=== PATIENT | female | born 1945 | race Caucasian/White ===

== ENCOUNTER 2017-07-20 12:10 | Day surgery (SDC) | payer MEDICARE ==
[2017-07-19 15:51] VITALS: BMI 25.7
[2017-07-20] MEDS ORDERED: Oxymetazoline HCl 0.05% ( 15 ML ) ONE ×3 (14:08→18:45)
[2017-07-20 14:23] LABS: Hematocrit 48.8 % (36.0-47.0)
[2017-07-20 14:42] LABS: Anion Gap 16 mmol/L (10-20); BUN (Urea Nitrogen) 12 mg/dL (9.8-20.1); Calc. Creatinine Clearance 91 mL/min (70-130); Calcium 9.5 mg/dL (7.8-10.44); Carbon Dioxide 25 mmol/L (23-31); Chloride 103 mmol/L (98-107); Estimated GFR-MDRD Greater than 90
[2017-07-20] MEDS ORDERED: Fentanyl 250 MCG/5 ML VIAL ONE (15:42)
[2017-07-20] MEDS ORDERED: Propofol 200 MG/20 ML VIAL ONE (15:58)
[2017-07-20] MEDS ORDERED: Ondansetron HCl/PF 4 MG/2 ML Vial ONE (15:58)
[2017-07-20] MEDS ORDERED: Esmolol 100 MG/10 ML VIAL ONE (15:58)
[2017-07-20] MEDS ORDERED: Lidocaine 2% MPF 10 ML AMP (For Epidural Use) ONE (15:58)
[2017-07-20] MEDS ORDERED: Dexamethasone 20 MG/5 ML VIAL ONE (15:58)
[2017-07-20] MEDS ORDERED: Fentanyl 100 MCG/2 ML VIAL ONE (16:58)
--- NOTE | 2017-07-20 17:29 | OP ---
PREOPERATIVE DIAGNOSES: Chronic acute sinusitis, recurrent sinusitis, hypertrophic inferior turbina yoon. POSTOPERATIVE DIAGNOSES: Chronic acute sinusitis, recurrent sinusitis, hypertrophic inferior turbin ates. PROCEDURE PERFORMED: 1. Bilateral nasal endoscopy with maxillary antrostomy with removal of tissue. 2. Bilateral nasal endoscopy with total ethmoidectomy. 3. Bilateral nasal endoscopy with frontal sinusotomy. 4. Bilateral nasal endoscopy with sphenoidotomy. 5. Bilateral nasal endoscopy with submucosal resection of inferior turbinates. PROCEDURE IN DETAIL: After consent was obtained, the patient was identified, brought to the operati ng room, and placed on the operating room table in the supine position. Consent was obtained, notif jaci the patient of the possibility of additional infections, bleeding, brain injury, and eye/orbita l injury. The patient was placed on the operating room table, and general endotracheal anesthesia and intravenous access was obtained. The patient was then positioned, prepped and draped for endosc opic sinus surgery. Nasal preparation included trimming nasal vestibular hairs and spraying in topi gato Afrin. We then placed Afrin topical solution on nasal pledgets and strategically located them i ntranasally. The perinasal mucosa was injected with 1% lidocaine with 1:100,000 epinephrine in the submucoperichondrial plane of the septum, lateral nasal wall, and anterior to the uncinate. The pat ient was then prepped and draped in a sterile fashion and positioned for endoscopic sinus surgery. (Endoscopic Sinus Surgery) With the 0-degree endoscope, the patient underwent systematic nasal endoscopy. There were no suspic ious internasal masses or lesions identified. We then focused our attention to the osteomeatal comp ita region under the middle turbinate. (Kasi Bullosa) The kasi bullosa was identified and entered with a sickle blade. The lateral aspect of the kasi bullosa was meticulously resected while leaving the medial most aspect to form the new middle turbi zay. Attention was made not to violate the mucosa. The straight biting punches and micro-debrider were used to remove shrouds of mucosa and bony debris. (Maxillary Antrostomy) The uncinate was then identified and the extent of the uncinate was appreciated by out-fracturing th e uncinate with the ball-tip probe. We then used the sickle blade to disarticulate the uncinate fro m the lateral nasal wall. This was then removed with straight biting and upbiting punches with the remaining shrouds of mucosa and bony septum removed with the micro-debrider. The natural os of the maxillary sinus was then identified and enlarged with the maxillary punches and back biting forceps. (Total Ethmoidectomy) The anterior face of the ethmoid bulla was entered and with the micro-debrider, dissection continued posteriorly to the ground lamella. The limits of dissection included the insertion of the middle t urbinate, medial orbital wall, and base of skull. We similarly identified the frontal recess and re moved shrouds of bone and debris in that region to obtain patency into the agger nasi region and fro ntal recess. We then entered the ground lamella and its anteroinferior aspect and proceeded posteri leighann, opening the posterior ethmoid air-cell system. Again, the limits of dissection included the b ase of skull and medial orbital wall. (Sphenoidotomy) The anterior face of the sphenoid was identified and entered in its extreme anteroinferior aspect. A sphenoid punch was then used to enlarge the sphenoidotomy and no injury to the optic nerve or inte rnal carotid artery occurred. (Outfracture of the Inferior Turbinates) The inferior turbinates were visualized under endoscopic visualization and outfractured with the alyce vator. The inferolateral edge of the inferior turbinate was then cauterized along its length with t he suction cautery without difficulty. (Outfracture \T\ Cautery of the Inferior Turbinates) The inferior turbinates were visualized with a 0-degree endoscope and outfractured with a Fifield elev ator. The inferior medial aspect was cauterized with the electrocautery. Hemostasis was obtained . After adequate airway was established, we turned our attention to the contralateral side and used a similar procedure. Again, a Fifield elevator was used to outfracture inferior turbinates under endo scopic visualization. With a suction cautery, the free inferior medial aspect was cauterized under direct visualization along the length of the inferior turbinate. (Septoplasty) After local anesthesia was infiltrated into the submucoperichondrial plane, a standard Ralf incis ion was made with a #15 blade down to the level of the septal cartilage. The caudal elevator was us ed to elevate the mucoperichondrium from the underlying cartilage. We then proceeded beyond the bon y cartilaginous junction and elevated the bony periosteum as well. Great attention was paid to the spur to prevent rent formation in the septal flap. A transcartilaginous incision was then made, whil e preserving an adequate dorsal and caudal cartilaginous strut for tip support. The deformed cartil age was removed and disarticulated from the bony cartilaginous junction and maxillary crest. This w as placed in saline and would later be crushed and returned to the mucoperichondrial envelope. We t hen elevated the contralateral periosteum from the bony cartilaginous region and removed the deforme d portions of the bone and bony spurs. The cartilage was then crushed and placed back into the muco perichondrial envelope and the mucosa was re-approximated with a quilting stitch composed of rapidly absorbent gut suture. The [place] incision was also closed with interrupted gut suture. At the co mpletion of the case, Ibrahim splints were placed and suture secured to the caudal septum. At the completion of the case, Rice keel splints were placed in the ethmoid cavities after the ethmoidectomy. There were no complications. The patient tolerated the procedure well and was discharged to the recovery room in stable condition prior to return to the preoperativ e Day Stay with ultimate discharge home. Prescriptions for pain medication and antibiotics were pro vided. The patient received intramuscular Depo-Medrol during the case.
[2017-07-20] MEDS ORDERED: Morphine 4 MG/ML Carpuject ONE (17:32)
[2017-07-20] MEDS ORDERED: Promethazine HCl 25 MG/ML VIAL ONE (18:32)
--- NOTE | 2017-07-21 16:06 | EKG ---
Test Reason : PREOP Blood Pressure : / mmHG Vent. Rate : 075 BPM Atrial Rate : 075 BPM P-R Int : 138 ms QRS Dur : 102 ms QT Int : 422 ms P-R-T Axes : 054 -20 066 degrees QTc Int : 471 ms Normal sinus rhythm Normal ECG No previous ECGs available Confirmed by DR. Jose Francisco HEARD ([id number]) on 07/21/2017 4:05:58 PM Referred By: ELY Confirmed By:DR. Jose Francisco HEARD
== END 2017-07-20 20:30 | disposition home or self-care (01) ==
LOC: SDC 12:10
PROVIDERS: ATTEND Specialist
PROC: 099R8ZZ Drainage of Left Maxillary Sinus, Via Natural or Artificial Opening Endoscopic (ICD-10-PCS; principal; 2017-07-20)
PROC: 099Q8ZZ Drainage of Right Maxillary Sinus, Via Natural or Artificial Opening Endoscopic (ICD-10-PCS; 2017-07-20)
PROC: 09TV8ZZ Resection of Left Ethmoid Sinus, Via Natural or Artificial Opening Endoscopic (ICD-10-PCS; 2017-07-20)
PROC: 09TU8ZZ Resection of Right Ethmoid Sinus, Via Natural or Artificial Opening Endoscopic (ICD-10-PCS; 2017-07-20)
PROC: 099T8ZZ Drainage of Left Frontal Sinus, Via Natural or Artificial Opening Endoscopic (ICD-10-PCS; 2017-07-20)
PROC: 099S8ZZ Drainage of Right Frontal Sinus, Via Natural or Artificial Opening Endoscopic (ICD-10-PCS; 2017-07-20)
PROC: 099X8ZZ Drainage of Left Sphenoid Sinus, Via Natural or Artificial Opening Endoscopic (ICD-10-PCS; 2017-07-20)
PROC: 099W8ZZ Drainage of Right Sphenoid Sinus, Via Natural or Artificial Opening Endoscopic (ICD-10-PCS; 2017-07-20)
PROC: 09BL8ZZ Excision of Nasal Turbinate, Via Natural or Artificial Opening Endoscopic (ICD-10-PCS; 2017-07-20)
DX: J01.91 Acute recurrent sinusitis, unspecified (principal); J34.3 Hypertrophy of nasal turbinates; Z98.51 Tubal ligation status; Z90.49 Acquired absence of other specified parts of digestive tract; Z98.890 Other specified postprocedural states
CPT/HCPCS: 36415; 80048; 85014; 85018; 87070; 87205; 93005; 93010; 96374; 96375; J1100; J2001; J2270; J2405; J2550; J2704; J2920; J3010